=== PATIENT | male | born 1935 | race Caucasian/White ===

== ENCOUNTER 2019-03-04 14:22 | Outpatient (CLI) | payer MEDICARE, OTHER, SELFPAY ==
--- NOTE | 2019-03-04 14:34 | XR_ITS ---
WS: [id number] LUMBAR SPINE: 3 VIEWS TECHNIQUE: AP, lateral and L5-S1 spot. 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 Marked S-shaped curvature the lumbar spine. RIGHT convexity centered at L2-3. Severe disc space narrowing and osteoph ytes and sclerosis and facet arthropathy. No definite fractures are identified. Mild narrowing of the SI joints bilaterally. Moderate atherosclerosis and ectasia abdominal aorta. 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 XR/XR lumbar spine 2-3V* [id number] IMPRESSION: 1. 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 2. Ectatic tortuous abdominal aorta.
== END 2019-03-04 14:23 | disposition home or self-care (01) ==
LOC: WPI 14:32
PROVIDERS: Family Provider Electrodiagnostic Medicine; PCP Electrodiagnostic Medicine; Visit Provider Electrodiagnostic Medicine
DX: M41.85 Other forms of scoliosis, thoracolumbar region (principal); I77.811 Abdominal aortic ectasia; M54.5 Low back pain
CPT/HCPCS: 72100

== ENCOUNTER 2019-04-19 08:26 | Outpatient (CLI) | payer MEDICARE, OTHER, SELFPAY ==
--- NOTE | 2019-04-19 08:34 | CT_ITS ---
WS: [id number] CT LUMBAR SPINE TECHNIQUE: Contrast-enhanced CT of the lumbar spine with coronal and sagittal reformatted images. CLINICAL INFORMATION: BACK PAIN, LUMBAR WITH RADICULOPATHY COMPARISON: None. DLP: 1785.[address] scans at [facility] use at least one of these dose optimization techniques: automat ed exposure control; mA and/or kV adjustment per patient size (includes targeted exams where dose is matched to clinical indication); or iterative reconstruction. FINDINGS: Lumbar scoliosis convex right in the upper lumbar spine convex left in the lower lumbar spine. Multil evel degenerative disc disease. No acute appearing compression fractures. Vacuum disc phenomenon at L 1-2, L3-4 and L4-5. L1-L2: Prominent left pericentral disc protrusion impinges the left subarticular recess with moderate central canal stenosis. Impingement on the traversing left L2 nerve root. Moderate left foraminal na rrowing. Mild right foraminal narrowing. Moderate facet arthropathy. L2-L3: Disc osteophyte complex eccentric to the left impinging the left subarticular recess and trave rsing left L3 nerve root. Mild central canal stenosis. Mild left foraminal narrowing. Moderate facet arthropathy. L3-L4: Vacuum disc phenomenon. Disc osteophyte complex with impingement on the subarticular recess bi laterally left greater than right. Moderate central canal stenosis. Moderate facet arthropathy. Moder ate left greater than right foraminal narrowing. L4-L5:Disc osteophyte complex with endplate ridging. Advanced facet arthropathy. Impingement right dubon barticular recess. Mild central canal stenosis. Severe right foraminal narrowing. Mild to moderate le ft foraminal narrowing. Advanced facet arthropathy. L5-S1: Mild disc bulging and osteophytic ridging. Slight effacement of ventral thecal sac. Mild left and no significant right foraminal narrowing. Advanced facet arthropathy. Moderate aortic atheromato us disease. Visualized pelvic bony structures: Normal. Paravertebral soft tissues: Normal. CT/CT lumbar spine w con [id number] IMPRESSION: 1. Advanced lumbar scoliosis. No acute compression fractures. 2. Left subarticular disc protrusion L1-2 impinges the left subarticular reces s and traversing left L2 nerve root. Moderate central canal stenosis at this le spencer with moderate left foraminal narrowing. 3. Narrowing of the left subarticular recess L2-3 with impingement on traversi ng left L3 nerve root. 4. Moderate central canal stenosis L3-4 due to disc osteophyte complex and imp ingement subarticular recess bilaterally. Moderate left foraminal narrowing at this level. 5. Disc osteophyte complex impinges the right L4-5 subarticular recess and tra versing L5 nerve root. Severe right L4-5 foraminal narrowing. 6. Moderate to advanced multilevel facet arthropathy worse at L3-L4, right L4- 5, and right L5-S1.
--- NOTE | 2019-04-19 08:36 | IR_ITS ---
WS: [id number] MYELOGRAM LUMBAR SPINE Fluoroscopic guided lumbar myelogram CLINICAL INFORMATION: BACK PAIN, LUMBAR WITH RADICULOPATHY COMPARISON: None. TECHNIQUE: The procedure, including risks, benefits, and complications, were discussed with the patie nt who agreed to proceed. A timeout was performed to confirm correct patient, procedure, and site. Using sterile technique, the patient was prepped and draped in the usual sterile fashion. After admin istration of local anesthesia using 1% preservative-free lidocaine and using fluoroscopic guidance, a 22-gauge spinal needle was advanced into the subarachnoid space at the L4-5 level. Subsequently 13 c c of Omnipaque 240 was administered into the thecal sac. The needle was removed and hemostasis was ac hieved. Spot fluoroscopic images were obtained. FLUOROSCOPIC TIME: 0.8 minutes. Spot fluoroscopic images demonstrate lumbar scoliosis convex right in the upper lumbar spine and conv ex left in the lower lumbar spine. Advanced multilevel degenerative disease. Osteopenia. Slight anter olisthesis L4 on L5. No instability on flexion-extension. Abdominal aortic calcification. Please see CT myelogram report for additional detail. IR/IR myelogram sp lumbar [id number] IMPRESSION: 1. Uncomplicated lumbar myelogram 2. S-shaped lumbar scoliosis. 3. Osteopenia. 4. Multilevel degenerative disease with disc space narrowing throughout the nicole mbar spine. 5. Slight anterolisthesis L4 on L5. No instability on flexion-extension.
[2019-04-19] MEDS: iohexol 240 mg/mL 50 mL Btl INTRATHECA (10:05)
[2019-04-19 10:17] LABS: Prothrombin Time (Patient) 11.8 Seconds (10.5-13.3)
== END 2019-04-19 08:27 | disposition home or self-care (01) ==
LOC: RADWPI 08:29
PROVIDERS: Family Provider Electrodiagnostic Medicine; PCP Electrodiagnostic Medicine; Visit Provider Electrodiagnostic Medicine
DX: M54.16 Radiculopathy, lumbar region (principal); M54.89 Other dorsalgia; M41.86 Other forms of scoliosis, lumbar region; M85.80 Other specified disorders of bone density and structure, unspecified site; M51.36 Other intervertebral disc degeneration, lumbar region
CPT/HCPCS: 62304; 72120; 72132; 85610; J2001; Q9966

== ENCOUNTER → 2019-09-28 15:19 | Outpatient (BNVA) | payer MEDICARE, OTHER, SELFPAY | PROVIDERS: Family Provider Electrodiagnostic Medicine; PCP Electrodiagnostic Medicine; Visit Provider Dermatology | DX: L57.8 Other skin changes due to chronic exposure to nonionizing radiation (principal); L57.0 Actinic keratosis; D17.0 Benign lipomatous neoplasm of skin and subcutaneous tissue of head, face and neck; D17.9 Benign lipomatous neoplasm, unspecified; Z85.828 Personal history of other malignant neoplasm of skin | CPT/HCPCS: 17004; 99203 ==

== ENCOUNTER → 2019-12-28 10:47 | Outpatient (BNVA) | payer MEDICARE, OTHER, SELFPAY | PROVIDERS: Family Provider Electrodiagnostic Medicine; PCP Electrodiagnostic Medicine; Visit Provider Dermatology | DX: D48.9 Neoplasm of uncertain behavior, unspecified (principal) | CPT/HCPCS: 88304 ==

== ENCOUNTER → 2021-09-28 11:03 | Outpatient (BNVA) | payer MEDICARE, OTHER, SELFPAY | PROVIDERS: Family Provider Electrodiagnostic Medicine; PCP Electrodiagnostic Medicine; Visit Provider Internal Medicine | DX: I48.91 Unspecified atrial fibrillation (principal); I10 Essential (primary) hypertension; E78.5 Hyperlipidemia, unspecified; Z95.0 Presence of cardiac pacemaker; Z79.01 Long term (current) use of anticoagulants; Z87.891 Personal history of nicotine dependence | CPT/HCPCS: 99213; 99214 ==

== ENCOUNTER → 2022-02-15 10:49 | Outpatient (BNVA) | payer MEDICARE, OTHER, SELFPAY | PROVIDERS: Family Provider Electrodiagnostic Medicine; PCP Electrodiagnostic Medicine; Visit Provider Internal Medicine | DX: Z45.010 Encounter for checking and testing of cardiac pacemaker pulse generator [battery] (principal) | CPT/HCPCS: 93280 ==

== ENCOUNTER → 2022-06-04 10:23 | Outpatient (BNVA) | payer MEDICARE, OTHER, SELFPAY | PROVIDERS: Family Provider Electrodiagnostic Medicine; PCP Electrodiagnostic Medicine; Visit Provider Internal Medicine | DX: Z45.010 Encounter for checking and testing of cardiac pacemaker pulse generator [battery] (principal) | CPT/HCPCS: 93296 ==

== ENCOUNTER → 2022-06-28 10:05 | Outpatient (BNVA) | payer MEDICARE, OTHER, SELFPAY | PROVIDERS: Family Provider Electrodiagnostic Medicine; PCP Electrodiagnostic Medicine; Visit Provider Internal Medicine | DX: I48.91 Unspecified atrial fibrillation (principal); I10 Essential (primary) hypertension; E78.5 Hyperlipidemia, unspecified; Z95.0 Presence of cardiac pacemaker; Z79.01 Long term (current) use of anticoagulants; R07.9 Chest pain, unspecified; Z87.891 Personal history of nicotine dependence | CPT/HCPCS: 99214 ==

== ENCOUNTER 2022-07-03 10:58 | Outpatient (CLI) | payer MEDICARE, OTHER, SELFPAY ==
--- NOTE | 2022-07-03 11:32 | CTR_ITS ---
PROCEDURE INFORMATION: Exam: CT Abdomen And Pelvis Without Contrast Exam date and time: 07/03/2022 12:28 PM Age: 87 years old Clinical indication: Other: Abnormal weight loss TECHNIQUE: Imaging protocol: Computed tomography of the abdomen and pelvis without contrast. Radiation optimization: All CT scans at this facility use at least one of these dose optimization techniques: automated exposure control; mA and/or kV adjustment per patient size (includes targeted exams where dose is matched to clinical indication); or iterative reconstruction. REPORTING DATA: Count of CT and Cardiac NM exams in prior 12 months: This patient has received 0 known CTs and 0 known cardiac nuclear medicine studies in the 12 months prior to the current study. COMPARISON: CT kidney stone [id number] 08/14/2016 8:55 AM RADIATION DOSE METRICS: Total DLP (mGy-cm): 417.94 FINDINGS: Tubes, catheters and devices: Pacemaker leads. Lungs: Incompletely seen nodule stable however, in the lingula image 4/ measuring 7 x 5 mm. Liver: 24 x 20 mm liver cyst slightly larger than the previous examination. Two other smaller cysts are seen more inferiorly by the gallbladder fossa. In Gallbladder and bile ducts: See Liver finding. Pancreas: Normal. No ductal dilation. Spleen: Normal. No splenomegaly. Adrenal glands: Normal. No mass. Kidneys and ureters: Numerous renal stones bilaterally without hydronephrosis. The largest stone on the right measures 7 x 4 mm. The largest stone on the left measures 5 x 4 mm. Stomach and bowel: Numerous colonic diverticula. No evidence of diverticulitis. Appendix: Unremarkable visualized right lower quadrant appendix. Intraperitoneal space: Unremarkable. No free air. No significant fluid collection. Vasculature: Ectatic aorta with extensive calcification. Lymph nodes: Unremarkable. No enlarged lymph nodes. Urinary bladder: Unremarkable as visualized. Reproductive: Unremarkable as visualized. Bones/joints: Severe arthritic changes and scoliosis in the spine. No fracture. Soft tissues: Unremarkable. CT/CT abdomen pelvis wo con [id number] IMPRESSION: 1. Nephrolithiasis. No hydronephrosis. 2. Stable lung nodule. This is stable for over 5 years no further follow-up should be needed per CT criteria. 3. Liver cysts.
[2022-07-03] MEDS: iohexol 350 mg/mL 500 mL Btl (per mL) PO (12:50)
== END 2022-07-03 10:59 | disposition home or self-care (01) ==
LOC: RAD 11:08
PROVIDERS: PCP Electrodiagnostic Medicine; Visit Provider Electrodiagnostic Medicine
DX: R63.4 Abnormal weight loss (principal); N20.0 Calculus of kidney; R91.8 Other nonspecific abnormal finding of lung field
CPT/HCPCS: 74176; Q9967

== ENCOUNTER → 2022-10-22 10:42 | Outpatient (BNVA) | payer MEDICARE, OTHER, SELFPAY | PROVIDERS: PCP Electrodiagnostic Medicine; Visit Provider Nurse Practitioner Family | DX: I48.91 Unspecified atrial fibrillation (principal); Z79.01 Long term (current) use of anticoagulants; Z87.891 Personal history of nicotine dependence; Z95.0 Presence of cardiac pacemaker | CPT/HCPCS: 99213 ==

== ENCOUNTER → 2022-10-24 10:21 | Outpatient (BNVA) | payer MEDICARE, OTHER, SELFPAY | PROVIDERS: PCP Electrodiagnostic Medicine; Visit Provider Internal Medicine | DX: Z45.010 Encounter for checking and testing of cardiac pacemaker pulse generator [battery] (principal) | CPT/HCPCS: 93296 ==

== ENCOUNTER → 2022-11-19 15:03 | Outpatient (BNVA) | payer MEDICARE, OTHER, SELFPAY | PROVIDERS: PCP Electrodiagnostic Medicine; Visit Provider Dermatology | DX: L57.0 Actinic keratosis (principal); L82.1 Other seborrheic keratosis; Z85.828 Personal history of other malignant neoplasm of skin; D48.5 Neoplasm of uncertain behavior of skin | CPT/HCPCS: 11102; 17000; 99213 ==

== ENCOUNTER → 2022-11-26 09:09 | Outpatient (BNVA) | payer MEDICARE, OTHER, SELFPAY | PROVIDERS: PCP Electrodiagnostic Medicine; Visit Provider Dermatology | DX: C44.319 Basal cell carcinoma of skin of other parts of face (principal); D04.39 Carcinoma in situ of skin of other parts of face | CPT/HCPCS: 14041; 17282; 17311 ==

== ENCOUNTER → 2023-04-08 14:04 | Outpatient (BNVA) | payer MEDICARE, OTHER, SELFPAY | PROVIDERS: PCP Electrodiagnostic Medicine; Visit Provider Dermatology | DX: L57.0 Actinic keratosis (principal); D17.0 Benign lipomatous neoplasm of skin and subcutaneous tissue of head, face and neck; Z85.828 Personal history of other malignant neoplasm of skin; L57.8 Other skin changes due to chronic exposure to nonionizing radiation; L82.1 Other seborrheic keratosis | CPT/HCPCS: 17000; 99213 ==

== ENCOUNTER → 2023-06-04 12:22 | Outpatient (BNVA) | payer MEDICARE, OTHER, SELFPAY | PROVIDERS: PCP Electrodiagnostic Medicine; Visit Provider Internal Medicine | DX: I48.91 Unspecified atrial fibrillation (principal); I10 Essential (primary) hypertension; E78.5 Hyperlipidemia, unspecified; Z95.0 Presence of cardiac pacemaker; Z79.01 Long term (current) use of anticoagulants; Z87.891 Personal history of nicotine dependence | CPT/HCPCS: 99214 ==

== ENCOUNTER → 2023-07-07 13:24 | Outpatient (BNVA) | payer MEDICARE, OTHER, SELFPAY | PROVIDERS: PCP Electrodiagnostic Medicine; Visit Provider Dermatology | DX: D48.5 Neoplasm of uncertain behavior of skin (principal); L57.0 Actinic keratosis; L82.1 Other seborrheic keratosis; L81.4 Other melanin hyperpigmentation; D18.01 Hemangioma of skin and subcutaneous tissue | CPT/HCPCS: 11102; 17000; 99213 ==

== ENCOUNTER → 2023-08-13 10:18 | Outpatient (BNVA) | payer MEDICARE, OTHER, SELFPAY | PROVIDERS: PCP Electrodiagnostic Medicine; Visit Provider Internal Medicine | DX: Z45.010 Encounter for checking and testing of cardiac pacemaker pulse generator [battery] (principal) | CPT/HCPCS: 93296 ==

== ENCOUNTER → 2023-08-18 08:16 | Outpatient (BNVA) | payer MEDICARE, OTHER, SELFPAY | PROVIDERS: PCP Electrodiagnostic Medicine; Visit Provider Dermatology | DX: C44.319 Basal cell carcinoma of skin of other parts of face (principal); L57.0 Actinic keratosis | CPT/HCPCS: 17000; 17281; 17282 ==

== ENCOUNTER → 2023-10-07 13:56 | Outpatient (BNVA) | payer MEDICARE, OTHER, SELFPAY | PROVIDERS: PCP Electrodiagnostic Medicine; Visit Provider Dermatology | DX: D48.5 Neoplasm of uncertain behavior of skin (principal); L57.0 Actinic keratosis; L57.8 Other skin changes due to chronic exposure to nonionizing radiation; Z85.828 Personal history of other malignant neoplasm of skin | CPT/HCPCS: 11102; 17000; 99213 ==

== ENCOUNTER → 2024-01-27 09:23 | Outpatient (BNVA) | payer MEDICARE, OTHER, SELFPAY | PROVIDERS: PCP Electrodiagnostic Medicine; Visit Provider Nurse Practitioner Family | DX: Z08 Encounter for follow-up examination after completed treatment for malignant neoplasm (principal); Z85.828 Personal history of other malignant neoplasm of skin; L57.0 Actinic keratosis | CPT/HCPCS: 17000; 99213 ==

== ENCOUNTER → 2024-02-04 13:09 | Outpatient (BNVA) | payer MEDICARE, OTHER, SELFPAY | PROVIDERS: PCP Electrodiagnostic Medicine; Visit Provider Nurse Practitioner Family | DX: I48.0 Paroxysmal atrial fibrillation (principal); I10 Essential (primary) hypertension; E78.5 Hyperlipidemia, unspecified; Z95.0 Presence of cardiac pacemaker; Z79.01 Long term (current) use of anticoagulants; Z87.891 Personal history of nicotine dependence | CPT/HCPCS: 99213 ==

== ENCOUNTER 2024-02-19 06:38 | Outpatient (CLI) | payer MEDICARE, OTHER, SELFPAY ==
--- NOTE | 2024-02-19 07:00 | USCV_ITS ---
Arnold Devon Age: 88 Gender: M : 1935 Exam Date: 02/19/2024 07:03 Ordering Phys: True Padron DO Technologist: DIANA [place] [facility] [place]: CHF/ DIZZINESS BP: 140 / 83 HR: 61 Rhythm: Atrial fibrillation Technical Quality: Adequate MEASUREMENTS (Male / Female) Normal Values 2D ECHO LV Diastolic Diameter PLAX 5.8 cm 4.2 - 5.9 / 3.9 - 5.3 cm IVS Diastolic Thickness 1.0 cm 0.6 - 1.0 / 0.6 - 0.9 cm IVS Systolic Thickness 1.9 cm LVPW Diastolic Thickness 1.6 cm 0.6 - 1.0 / 0.6 - 0.9 cm LVPW Systolic Thickness 1.9 cm LVOT Diameter 2.0 cm LV Ejection Fraction 2D Teich 41.8 % LV Ejection Fraction MOD 4C 50.3 % LV Ejection Fraction MOD 2C 42.7 % LV Ejection Fraction 2C AL 47.2 % LA Diameter 4.8 cm RA Systolic Volume 4C AL 35.4 ml RA Systolic Volume 4C MOD 32.3 ml LA Sys Volume AL 65.9 cm cubed LA Sys Volume Index AL 29.9 cm cubed/m squared Aorta at Sinotubular Diameter 2.7 cm M-MODE LA Ao Ratio MM 1.2 AV Cusp Separation MM 1.8 cm DOPPLER AV Peak Velocity 144.7 cm/s LVOT Peak Velocity 89.0 cm/s AV Area Cont Eq vti 2.2 cm squared AV Area Cont Eq pk 1.9 cm squared MV Peak Velocity 78.0 cm/s MV Area PHT 2.4 cm squared Mitral E to A Ratio 85.0 TR Peak Velocity 243.0 cm/s TR Peak Gradient 23.6 mmHg TR Mean Velocity 180.0 cm/s TR Mean Gradient 14.4 mmHg TR Velocity Time Integral 79.6 cm TV Peak E Velocity 44.0 cm/s PV Peak Velocity 72.0 cm/s RV Ejection Time 0.3 s FINDINGS Left Ventricle Left ventricle is dilated. LV systolic function is moderately reduced with EF of 35 to 40%. Moderate global hypokinesis Right Ventricle Normal in size and function Right Atrium Normal in size. Pacemaker lead is seen. Left Atrium Dilated Mitral Valve Mild mitral annular calcification. Mild mitral regurgitation. Aortic Valve Aortic valve is thickened. No significant stenosis. Mild aortic regurgitation. Tricuspid Valve Mild tricuspid regurgitation. Pulmonary artery systolic pressure is normal. Pulmonic Valve Not well visualized Pericardium Normal Aorta Normal in size IVC Not visualized CONCLUSIONS LV systolic function is moderately reduced with EF of 35 to 40%. Pacemaker lead seen in right atrium and ventricle Left atrial dilation Mild mitral regurgitation Mild aortic regurgitation Mild tricuspid regurgitation Compared to prior echocardiogram from 2019, LV systolic function has decreased significantly. Marco Marcelo MD (Electronically Signed) Final Date: 21 February 2024 18:11 S
== END 2024-02-19 06:39 | disposition home or self-care (01) ==
PROVIDERS: PCP Electrodiagnostic Medicine; Visit Provider Electrodiagnostic Medicine
DX: I50.20 Unspecified systolic (congestive) heart failure (principal); I35.0 Nonrheumatic aortic (valve) stenosis; Z95.0 Presence of cardiac pacemaker; I50.9 Heart failure, unspecified
CPT/HCPCS: 93306

== ENCOUNTER 2024-03-16 07:55 | Outpatient (CLI) | payer MEDICARE, OTHER, SELFPAY ==
--- NOTE | 2024-03-16 | ECG_ITS ---
[facility] Test Date: 2024-03-16 Pat Name: Devon Barrett Department: Room: Gender: Male Felt [employer] Pouncing Operator Hand: : 1935 Requested By: Leigh Sandhu Order Number: [id number] Libia MD: ISIAH FUNES Interpretive Statements Lung unchanged pre/post procedure; Intraprocedure shortess of breath; Symptoms resoled by discharge EXERCISE DATA: The patient was exercised by Jordy protocol. Baseline heart rate was 68 beats per minute. Baseline blood pressure was 138/84 millimeters of mercury. Target heart rate was 132 beats per minute. Maximum heart rate achieved was 77, which was 58 % of the target heart rate. Maximum blood pressure was 150/93 millimeters of mercury. Total exercise time was 5 minutes 50 seconds. Maximum METs achieved was 7.0, maximum VO2 was 24.5. The reason for ending the test was maximum effort achieved. The patient complained of shortness of breath during the stress test, which then resolved at the end of the test. ELECTROCARDIOGRAM: BASELINE: Atrial fibrillation, left axis, left bundle branch block with PVCs EXERCISE: At the peak exercise level, no significant ST-T changes suggestive of ischemia noted. RECOVERY: During the recovery period, heart rate dropped appropriately. No significant ST-T changes in the recovery suggestive of ischemia noted. CONCLUSION: 1. Exercise capacity poor 2. Heart rate response was inappropriate 3. Blood pressure response was appropriate. 4. Symptoms not suggestive of ischemia. 5. Electrocardiogram portion of the stress test was not interpretable due to underlying left bundle branch block 6. Nuclear scan will be documented separately. Electronically Signed On 04-05-2024 21:51:18 BARREL REAMER by ISIAH FUNES [email or web address]
[2024-03-16 08:08] VITALS: BMI 25.2
--- NOTE | 2024-03-16 08:13 | NMCV_ITS ---
NM brittany perf SPECT r/s* [id number] Devon Barrett Age: 88 Gender: M : 1935 Exam Date: 03/16/2024 09:00 Ordering Phys: Leigh Sandhu NP Technologist: JOYCE Jhaveri Exam Location: [facility] Indications: cp STRESS TEST Please see separate stress test report in [facility] for full findings IMAGE PROTOCOL Rest/Stress 1 Lexiscan Day Radiopharmaceutical Dose (mCi) Administration Site Administered by Rest: Tc-99m 10.7 IV Patito Vargas, VICE PRESIDENT [employer] Sestamibi Stress:Tc-99m 32.6 IV Patito Mariegle, VICE PRESIDENT [employer] Sestamibi Rest: 16-Mar-2024 60 Discovery 630 Stress: 16-Mar-2024 30 Discovery 630 0.4mg Lexiscan. Supine position only as patient was unable to lay prone. SPECT RESULTS Technical Quality: Good Raw Data Analysis: Normal Image Corrections: No attenuation or motion correction applied Summed Stress Score: 8 Summed Rest Score: 9 Summed Difference Score: 0 PERFUSION FINDINGS Large area of fixed perfusion defect noted in basal to distal inferior and inferoseptal wall suggestive of old myocardial infarction versus artifact. FUNCTIONAL RESULTS (calculated via Gated SPECT) Stress Image LV EF (%): 52 Stress EDV (mL):139 TID: 0.86 Stress ESV (mL):67 FUNCTIONAL FINDINGS: There appeared to be inferior wall akinesis IMPRESSIONS Large area of fixed perfusion defect suggestive of old myocardial infarction versus scarring noted in basal to distal inferior and basal to mid inferoseptal wall. This study is negative for ischemia and suggestive of old myocardial infarction. Cara Hendrix MD (Electronically Signed) Final Date: 16 March 2024 23:33 S
[2024-03-16] MEDS: regadenoson 0.4 Mg/5 ml Syringe IVP (10:05)
[2024-03-16 10:17] VITALS: BP 126/84; PULSE 64
== END 2024-03-16 07:56 | disposition home or self-care (01) ==
LOC: CDL 07:56
PROVIDERS: PCP Electrodiagnostic Medicine; Visit Provider Nurse Practitioner Family
DX: R07.9 Chest pain, unspecified (principal); R93.1 Abnormal findings on diagnostic imaging of heart and coronary circulation; I44.7 Left bundle-branch block, unspecified
CPT/HCPCS: 36415; 78452; 93017; 96374; A9500; J2785

== ENCOUNTER → 2024-03-22 08:13 | Outpatient (BNVA) | payer MEDICARE, OTHER, SELFPAY | PROVIDERS: PCP Electrodiagnostic Medicine; Visit Provider Nurse Practitioner Family | DX: I48.0 Paroxysmal atrial fibrillation (principal); I11.0 Hypertensive heart disease with heart failure; I50.22 Chronic systolic (congestive) heart failure; E78.5 Hyperlipidemia, unspecified; Z95.0 Presence of cardiac pacemaker; Z79.01 Long term (current) use of anticoagulants; Z87.891 Personal history of nicotine dependence | CPT/HCPCS: 99213 ==

== ENCOUNTER 2024-04-29 11:25 | Outpatient (CLI) | payer MEDICARE, OTHER, SELFPAY ==
[2024-04-29 12:42] LABS: Blood Urea Nitrogen 17 mg/dL (8-23); Carbon Dioxide 26 mmol/L (22-29); Chloride 105 mmol/L (98-107); Glucose 96 mg/dL (65-115); NT Pro B Type Natriuretic Pept 1192 pg/mL (0-450); Osmolality Calculated 291 mOsm/kg (285-295); Sodium 140 mmol/L (136-145)
== END 2024-04-29 11:26 | disposition home or self-care (01) ==
LOC: LAB 11:27
PROVIDERS: PCP Electrodiagnostic Medicine; Visit Provider Nurse Practitioner Family
DX: I11.0 Hypertensive heart disease with heart failure (principal); I50.22 Chronic systolic (congestive) heart failure; K08.9 Disorder of teeth and supporting structures, unspecified; E78.5 Hyperlipidemia, unspecified
CPT/HCPCS: 36415; 80048; 83880; 99214

== ENCOUNTER → 2024-08-09 12:18 | Outpatient (BNVA) | payer MEDICARE, OTHER, SELFPAY | PROVIDERS: PCP Electrodiagnostic Medicine; Visit Provider Internal Medicine | DX: I10 Essential (primary) hypertension (principal); E78.5 Hyperlipidemia, unspecified; I48.91 Unspecified atrial fibrillation; Z79.01 Long term (current) use of anticoagulants; Z95.0 Presence of cardiac pacemaker; Z87.891 Personal history of nicotine dependence | CPT/HCPCS: 99214 ==

== ENCOUNTER → 2024-11-03 10:37 | Outpatient (BNVA) | payer MEDICARE, OTHER, SELFPAY | PROVIDERS: PCP Electrodiagnostic Medicine; Visit Provider Internal Medicine Cardiovascular Disease | DX: Z45.018 Encounter for adjustment and management of other part of cardiac pacemaker (principal) | CPT/HCPCS: 93296 ==

== ENCOUNTER → 2024-11-29 09:20 | Outpatient (BNVA) | payer MEDICARE, OTHER, SELFPAY | PROVIDERS: PCP Electrodiagnostic Medicine; Visit Provider Dermatology | DX: D18.01 Hemangioma of skin and subcutaneous tissue (principal); Z08 Encounter for follow-up examination after completed treatment for malignant neoplasm; Z85.828 Personal history of other malignant neoplasm of skin; D48.5 Neoplasm of uncertain behavior of skin; L57.0 Actinic keratosis | CPT/HCPCS: 11102; 17000; 99213 ==

== ENCOUNTER → 2024-12-08 08:18 | Outpatient (BNVA) | payer MEDICARE, OTHER, SELFPAY | PROVIDERS: PCP Electrodiagnostic Medicine; Visit Provider Dermatology | DX: C44.42 Squamous cell carcinoma of skin of scalp and neck (principal); C44.329 Squamous cell carcinoma of skin of other parts of face | CPT/HCPCS: 11643; 14041; 99213 ==

== ENCOUNTER 2024-12-29 11:42 | Outpatient (CLI) | payer MEDICARE, OTHER, SELFPAY ==
--- NOTE | 2024-12-29 11:50 | USCV_ITS ---
Devon Barrett Age: 89 Gender: M : 1935 Exam Date: 12/29/2024 11:54 Ordering Phys: Jeannine Lew DO Technologist: Exam Location: [facility] [place] Indication: knot on lt leg HISTORY: lt leg knot PROCEDURES: Venous duplex imaging was performed in only the left lower extremity. Serial compression, augmentation maneuvers, and spectral Doppler flow evaluation were performed. FINDINGS: Normal 2-D Doppler and augmentation and compressibility throughout the lower extremity venous structures. Additional imaging through the proximal calf veins also reveals no thrombus. Limited evaluation of the greater saphenous vein is patent with no thrombus. Medial calf complex collection is most likely a hemaoma. CONCLUSIONS No DVT left lower extremity. Complex fluid collection over the tibia, most consistent with hematoma. Dr. Shiela Whatley DO (Electronically Signed) Final Date: 29 December 2024 12:25 S
== END 2024-12-29 11:43 | disposition home or self-care (01) ==
LOC: RAD 11:44
PROVIDERS: Absent Provider Internal Medicine; PCP Electrodiagnostic Medicine; Visit Provider Dermatology
DX: I82.402 Acute embolism and thrombosis of unspecified deep veins of left lower extremity (principal)
CPT/HCPCS: 93971

== ENCOUNTER 2025-01-04 09:08 | Outpatient (CLI) | payer MEDICARE, OTHER, SELFPAY ==
--- NOTE | 2025-01-04 09:17 | USR_ITS ---
PROCEDURE INFORMATION: Exam: US Bilateral Noninvasive Physiologic Study of the Lower Extremity Arteries, Limited Exam date and time: 01/04/2025 10:23 AM Age: 89 years old Clinical indication: Pain; Leg, lower; Bilateral; Additional info: Acute embolism thrombosis of unspecified veins of L L ext TECHNIQUE: Imaging protocol: Bilateral Limited bilateral noninvasive physiologic studies of lower extremity arteries. Waveforms were obtained and evaluated. Images were documented and archived. Exam is limited. COMPARISON: CT abdomen pelvis wo con [id number] 07/03/2022 12:28 PM FINDINGS: Right Ankle-Brachial Index: 1.1 along the dorsalis pedis artery. Left Ankle-Brachial Index: 1.05 along the posterior tibial artery and 1.28 along the dorsalis pedis artery. US/CV ankle brachial index [id number] IMPRESSION: Normal ABIs bilaterally.
== END 2025-01-04 09:09 | disposition home or self-care (01) ==
LOC: RAD 09:10
PROVIDERS: Family Provider Internal Medicine; PCP Electrodiagnostic Medicine; Visit Provider Dermatology
DX: I73.9 Peripheral vascular disease, unspecified (principal)
CPT/HCPCS: 93922

== ENCOUNTER → 2025-01-19 09:52 | Outpatient (BNVA) | payer MEDICARE, OTHER, SELFPAY | PROVIDERS: Family Provider Internal Medicine; PCP Electrodiagnostic Medicine; Visit Provider Dermatology | DX: C44.42 Squamous cell carcinoma of skin of scalp and neck (principal); L57.0 Actinic keratosis | CPT/HCPCS: 11623; 12032; 17000; 99213 ==

== ENCOUNTER → 2025-02-02 10:50 | Outpatient (BNVA) | payer MEDICARE, OTHER, SELFPAY | PROVIDERS: Family Provider Internal Medicine; PCP Electrodiagnostic Medicine; Visit Provider Internal Medicine | DX: C44.42 Squamous cell carcinoma of skin of scalp and neck (principal); Z45.02 Encounter for adjustment and management of automatic implantable cardiac defibrillator | CPT/HCPCS: 17272; 93296; 99213 ==

== ENCOUNTER → 2025-02-07 14:18 | Outpatient (BNVA) | payer MEDICARE, OTHER, SELFPAY | PROVIDERS: Family Provider Internal Medicine; PCP Electrodiagnostic Medicine; Visit Provider Internal Medicine | DX: I48.91 Unspecified atrial fibrillation (principal); Z95.0 Presence of cardiac pacemaker; Z79.01 Long term (current) use of anticoagulants; I10 Essential (primary) hypertension | CPT/HCPCS: 99214 ==